=== PATIENT | male | born 1980 | race Caucasian/White ===

== ENCOUNTER 2023-09-23 11:42 | Emergency (ER) | payer OTHER, SELFPAY ==
[2023-09-23 12:09] VITALS: BP 154/114; PULSE 93; RESP 16; TEMP 37.2; O2SAT 100
--- NOTE | 2023-09-23 12:13 | ED.GENADULT ---
HPI - General Adult General Chief complaint: Upper Respiratory Infection Stated complaint: COLD SYMPTOMS Source: patient, RN notes reviewed and old records reviewed Mode of arrival: ambulatory Limitations: no limitations History of Present Illness HPI narrative: 43-year-old male patient presents to [facility] with complaints cough, congestion, sinus pressure that started almost 2 months ago. Patient tried ivsu-jec-gvhofok medications with no relief. Patient was also seen at another urgent care and given prednisone and told he had a viral illness. Patient states still did not improve. Patient denies chest pain, shortness of breath, dizziness, weakness. Related Data Allergies Allergy/AdvReac Type Severity Reaction Status Date / Time No Known Allergies Allergy Verified 09/23/23 12:16 Review of Systems Constitutional: Constitutional: Reports no additional constitutional complaints, Denies body ache(s), Denies chills, Denies fatigue, Denies fever(s) and Reports headache(s) Eyes: Eyes: Reports no additional eye complaints and Denies blurry vision ENT: Reports system reviewed and no additional complaints, except as documented, Denies vertigo, Denies dizziness, Denies ear discharge, Denies otalgia, Denies facial pain, Reports headache(s), Reports nasal congestion, Reports nasal discharge, Reports sinus pain, Reports sinus pressure and Denies sore throat Cardiovascular: Cardiovascular: Reports no additional cardiovascular complaints, Denies chest pain, Denies chest pain at rest, Denies rapid heart rate and Denies dyspnea Respiratory: Respiratory: Reports no additional respiratory complaints, Reports chest congestion, Reports cough, Denies pain on inspiration, Denies pain with cough and Denies dyspnea Gastrointestinal: Gastrointestinal: Denies abdominal pain, Denies diarrhea, Denies nausea and Denies vomiting Integumentary/Breasts: Skin/Breast: Denies rash Neurologic: Reports system reviewed and no additional complaints, except as documented, Denies vertigo, Denies dizziness and Denies headache(s) Endocrine: Endocrine: Denies fatigue PMFSH Comments At the time of my signature, I reviewed and agree with the nursing past medical, surgical, social, and family history. There is no relevant family history pertinent to the patient complaint. Exam Const: General: cooperative, healthy appearing, no acute distress and well nourished Nutritional Appearance: well nourished Orientation/consciousness: patient oriented x3 Limitations: no limitations HENMT: Head: normal to inspection and normocephalic Ears: external ears normal, TM's normal bilaterally, mastoids normal and Abnormal EAC present Face/Nose/Sinus: Abnormal mucous membranes and turbinates present boggy, Nasal discharge present purulent, normal facial exam and sinus tenderness Face and sinus: normal facial exam Mouth: Yes Normal oral and palatal mucosa present, Yes oropharynx normal and Yes moist mucous membranes Throat: tonsils normal, uvula midline and no uvular edema Eyes: General: appearance normal, both eyes and all related structures Sclera: sclerae normal Pupils: Equal, round and reactive pupils present Resp: Effort & Inspection: normal respiratory effort, able to speak in complete sentences, no audible wheezes, no cough, no respiratory distress and no retractions Auscultation: clear to auscultation bilaterally, no crackles, no rales, no rhonchi and no wheezes Cardio: Rate: regular rate Rhythm: regular rhythm Skin: General skin exam: normal color and no rashes or lesions noted Neuro: General: patient oriented x3 Cranial nerves: Yes Equal, round and reactive pupils present Psych: Appearance: grossly normal Mental Status: mental status grossly normal Speech and movement: Normal speech and movement present Affect: normal affect Course Course Emergency Course: Patient is aware of diagnosis, understands and agrees to treatment plan.? Anticipatory guidance given.? Jennifer
== END 2023-09-23 12:21 | disposition home or self-care (01) ==
PROVIDERS: Emergency Provider Registered Nurse
DX: J01.90 Acute sinusitis, unspecified (principal)
CPT/HCPCS: 99213; G0463

== ENCOUNTER 2024-12-07 01:34 | Emergency (ER) | payer OTHER, SELFPAY ==
[2024-12-07] VITALS (34 sets, daily range): BP systolic 137–169; BP diastolic 94–146; PULSE 74–101; RESP 14–22; TEMP 36.8; O2SAT 94–99
--- NOTE | ~2024-12-07 | CT_ITS ---
CT of the Abdomen and Pelvis: Indication: Abdominal pain Technique: 2.5 mm axial scans were obtained through the abdomen and pelvis following intravenous adm inistration of 100 cc of Omnipaque 350. Dose reduction technique was used on this scan by utilizing a utomated exposure control and iterative reconstruction technique. The dose-length product (DLP) was 8 01.53 mGy-cm. Findings: Scans through the lung bases are unremarkable. There is diffuse hepatic steatosis. Small calcified gallstone present. Possible small stones in the c ystic duct. The spleen, pancreas, adrenals and kidneys are within normal limits. No evidence of aort ic aneurysm. No lymphadenopathy. No bowel obstruction or bowel wall thickening. There is no evidence to suggest acute appendicitis. Images through the pelvis were performed. Urinary bladder unremarkable. No pelvic mass seen. No ascit es. Impression: Diffuse hepatic steatosis. Cholelithiasis, and possible small stones in the cystic duct, but no definite CT evidence for acute c holecystitis.. Reviewed, dictated and finalized at location . Impression: Diffuse hepatic steatosis. Cholelithiasis, and possible small stones in the cystic duct, but no definite C T evidence for acute cholecystitis..
--- OUTSIDE RECORDS SUMMARY | 2024-12-07 01:36 | XMS_ITS | Encounter Summary ---
Author Organization [employer] Address 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
--- OUTSIDE RECORDS SUMMARY | 2024-12-07 01:36 | XMS_ITS | Clinical Summary ---
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
--- OUTSIDE RECORDS SUMMARY | 2024-12-07 01:36 | XMS_ITS | Clinical Summary ---
Author Organization [facility] [employer] Address [address] [place] [place] [address] Care Team Providers Care Neon Installer Name Role Phone Pramod Dubois DO Primary Care Provider [phone] Source Comments [facility] [employer] [facility] [employer],non-owned Affiliates and Associated Physician Practices is amultiple site organization consisting of ambulatory clinics and hospital sitesin [place], [place], [place] and [place]. This disclosure is being madepursuant to the Care Everywhere program and may not contain all information available regarding this patient. Last updated 18.[employer] [facility] [employer] Allergies No known active allergies Medications * Be aware that medications may not be up to date on this document. Alwaysverify current medications with the patient. Tetrahydrozoline HCl (EYE DROPS OP) 1 Drop by Ophthalmic route once daily. Active loratadine (CLARITIN) 10 MG tabletIndication s:URI (upper respiratory infection),Asthm a Take 1 Tab by mouth once daily. 30 Tab 5 3 Active amoxicillin-clav ulanate (AUGMENTIN) 875-125 MG tabletIndication s:Bronchitis, acute Take 1 Tab by mouth every 12 hours. 20 Tab 0 3 Active albuterol HFA (VENTOLIN HFA) 108 (90 BASE) MCG/ACT inhalerIndicatio ns:URI (upper respiratory infection),Asthm a Inhale 2 Puffs by mouth every 6 hours as needed. 1 Inhaler 1 3 Active Active Problems Problem Noted Date Diagnosed Date Gastritis 03/07/2010 Fatigue 02/28/2010 Family History Medical History Relation Name Comments Depression Father Depression Mother Hypercholesterolemia Mother Relation Name Status Comments Brother Alive healthy Father Alive gallbladder rem dae Mother Alive healthy Sister Alive healthy Social History Tobacco Use Types Packs/Day Years Used Date Smoking Tobacco: Never Alcohol Use Standard Drinks/Week Comments Yes 3.3 (1 standard drink = 0.6 oz p ure alcohol) Sex and Gender Information Value Date Recorded Sex Assigned at Not on file Legal 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 Male 9:04 AM PEDIATRIC GENETICIST Gender Identity Not on file Sexual Orientation Not on file Last Filed Vital Signs Vital Sign Reading Time Taken Comments Blood Pressure 152/100 08/29/2012 2:00 PM PEDIATRIC GENETICIST Pulse 99 08/29/2012 2:00 PM PEDIATRIC GENETICIST Temperature 36.5 C (97.7 F) 08/29/2012 2:00 PM PEDIATRIC GENETICIST Respiratory Rate 14 08/29/2012 2:00 PM PEDIATRIC GENETICIST Oxygen Saturation 98% 08/29/2012 2:00 PM PEDIATRIC GENETICIST Inhaled Oxygen Concentration - - Weight 93 kg (205 lb) 08/29/2012 2:00 PM PEDIATRIC GENETICIST Height 182.9 cm (6') 08/29/2012 2:00 PM PEDIATRIC GENETICIST Body Mass Index 27.8 08/29/2012 2:00 PM PEDIATRIC GENETICIST Plan of Treatment Health Maintenance Due Date Last Done Comments COLOGUARD (AGES 45-75) - COL ON CA SCREENING 1978 COLON MONITORING 1978 COLONOSCOPY - COLON CA SCREENING 1978 CT COLONOGRAPHY - COLON CA SCREENING 1978 Colorectal Cancer Screening 1978 FIT - COLON CA SCREENING 1978 FLEX SIG - COLON CA SCREENING 1978 HIV SCREENING 1993 HEPATITIS C SCREENING 05/02/1996 DTAP/TDAP/TD VACCINES (1 - Tdap) 1997 HEPATITIS B VACCINE (1 of 3 - 19+ 3-dose series) 1997 LIPID TESTING 02/28/2015 02/28/2010 COVID-19 VACCINE ( - 2023-2 5 season) 2024 DEPRESSION SCREENING 08/09/2024 INFLUENZA VACCINE (Season Ended) 2025 ZOSTER VACCINE (1 of 2) 2028 HIB VACCINE Aged Out No longer eligi ble based on patient's age to complete this topic HPV VACCINE Aged Out No longer eligi ble based on patient's age to complete this topic MENINGOCOCCAL (Group B) VACC INE SHARED DECISION-MAKING Aged Out No longer eligibl e based on patient's age to complete this topic MENINGOCOCCAL GROUPS A/C/Y/W VACCINE Aged Out No longer eligible b ased on patient's age to complete this topic PNEUMOCOCCAL VACCINE Aged Out No long er eligible based on patient's age to complete this topic Procedures Procedure Name Priority Date/Time Associated Diagnosis Comments LIPID PROFILE Routine 02/28/2010 9:54 AM CDT Fatigue from Last 3 Months or Most Recently Relevant to Health Maintenance Results * (ABNORMAL) LIPID PROFILE (02/28/2010 9:54 AM CDT) Cholesterol 231(H) 100 - 199 mg/dL [facility] INSURANCE BILL Triglycerides 161(H) 0 - 149 mg/dL [facility] INSURANCE BILL HDL Cholesterol 70 >39 mg/dL [facility] INSURANCE BILL Comment: According to ATP-III Guidelines, HDL-C >59 mg/dL is considered a negative risk factor for CHD. VLDL Calculated 32 5 - 40 mg/dL [facility] INSURANCE BILL LDL Calculated 129(H) 0 - 99 mg/dL [facility] INSURANCE BILL BLOOD SPECIMEN / Unknown 02/28/2010 9:54 AM CDT 02/28/2010 8:49 PM CDT Narrative Resulting Agency Comment [facility] [place] [address] [facility] [id number] Pramod Dubois DO LAB - CHEMISTRY ORDERABLES Beverly l Result [facility] INSURANCE BILL [address] [place] [address] from Last 3 Months or Most Recently Relevant to Health Maintenance Care Teams Neon Installer Relationship Specialty Start Date End Date Pramod Dubois DO [address] [place] [address] PCP - General 02/18/10
[2024-12-07 01:59] LABS: Eosinophils Absolute Auto 0.1 K/mm3 (0-0.3); Eosinophils Percent Auto 2.6 % (0-4.4); Hematocrit 45.5 % (42.0-52.0); Immature Granulocyte Absolute 0.01 K/mm3 (0.00-0.031); Immature Granulocyte Percent A 0.2 % (0-0.5); Lymphocytes Absolute Auto 1.57 K/mm3 (0.9-3.2); Lymphocytes Percent Auto 30.9 % (18.3-44.2); Mean Corpuscular Hemoglobin 30.9 pg (26-34); Mean Corpuscular Volume 93.8 fl (80-100); Mean Platelet Volume 10.1 fl (7.4-10.4); Monocytes Absolute Auto 0.4 K/mm3 (0.1-0.6); Monocytes Percent Auto 7.9 % (2.6-8.5); Neutrophils Percent Auto 58.4 % (45.5-73.1); Platelet Count Result 173 k/mm3 (150-375); Red Blood Count 4.85 M/mm3 (4.6-6.20); Red Cell Distribution Width 11.9 % (11.5-14.5); White Blood Count 5.1 K/mm3 (4.5-10.0)
[2024-12-07 02:13] LABS: Alanine Aminotransferase 59 U/L (6-50); Alkaline Phosphatase 83 U/L (38-126); Anion Gap 14 mmol/L (4-12); Aspartate Amino Transferase 30 U/L (17-59); Bilirubin,Total 0.7 mg/dL (0.2-1.3); Blood Urea Nitrogen 14 mg/dL (9-20); Calcium 9.2 mg/dL (8.4-10.2); Carbon Dioxide 27 mmol/L (22-30); Chloride 100 mmol/L (98-107); Estimated CRCL calculation 90 ml/min; Estimated Glomerular Filt Rate > 60; Glucose 114 mg/dL (65-110); Lipase 88 U/L (23-300); Potassium 3.6 mmol/L (3.4-5.0); Sodium 141 mmol/L (137-145)
--- OUTSIDE RECORDS SUMMARY | 2024-12-07 02:50 | XMS_ITS | Clinical Summary ---
Author Organization [facility] Address [address] [place] [address] Care Team Providers Care Lamp Shades Supervisor Name Role Phone Pramod Dubois DO Primary Care Provider [phone] Source Comments [facility] [employer],non-owned Affiliates and Associated Physician Practices is amultiple site organization consisting of ambulatory clinics and hospital sitesin [place], [place], [place] and [place]. This disclosure is being madepursuant to the Care Everywhere program and may not contain all information available regarding this patient. 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 Gender Identity Not on file Sexual Orientation Not on file Last Filed Vital Signs Vital Sign Reading Time Taken Comments Blood Pressure 152/100 08/29/2012 2:00 PM GLASS OR MIRROR INSPECTOR Pulse 99 08/29/2012 2:00 PM GLASS OR MIRROR INSPECTOR Temperature 36.5 C (97.7 F) 08/29/2012 2:00 PM GLASS OR MIRROR INSPECTOR Respiratory Rate 14 08/29/2012 2:00 PM GLASS OR MIRROR INSPECTOR Oxygen Saturation 98% 08/29/2012 2:00 PM GLASS OR MIRROR INSPECTOR Inhaled Oxygen Concentration - - Weight 93 kg (205 lb) 08/29/2012 2:00 PM GLASS OR MIRROR INSPECTOR Height 182.9 cm (6') 08/29/2012 2:00 PM GLASS OR MIRROR INSPECTOR Body Mass Index 27.8 08/29/2012 2:00 PM GLASS OR MIRROR INSPECTOR Plan of Treatment Health Maintenance Due Date [...] PM CDT Narrative Resulting Agency Comment [facility] [place] [address] [facility] [phone] Pramod Dubois DO LAB - CHEMISTRY ORDERABLES Beverly l Result [facility] INSURANCE BILL [address] [place] [address] from Last 3 Months or Most Recently Relevant to Health Maintenance Care Teams Lamp Shades Supervisor Relationship Specialty Start Date End Date Pramod Dubois DO [address] [place] [address] PCP - General 02/18/10
--- OUTSIDE RECORDS SUMMARY | 2024-12-07 02:50 | XMS_ITS | Encounter Summary ---
Author Organization [employer] Address 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
--- OUTSIDE RECORDS SUMMARY | 2024-12-07 02:50 | XMS_ITS | Clinical Summary ---
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
--- NOTE | 2024-12-07 03:14 | ED_ITS ---
HPI - Abdominal Pain General Chief Complaint: Abdominal Pain Stated Complaint: abdominal pain x 6hrs Time Seen by Provider: 12/07/24 02:45 History of Present Illness HPI narrative: 44-year-old otherwise healthy male presenting to the emergency room with chief complaint of right upper quadrant abdominal pain for last 6 hours. Patient states he was eating a heavy meal of chil-cortney-a and approximately 30 minutes later he started developing pain is right upper quadrant and right-sided back. States it lasted about 6 hours and has since subsided upon his arrival to the emergency department. States he had several episodes of nauseousness but no vomiting. Similar episode 3 weeks ago with the exact same story. This 1 was more severe. No history of gallbladder disease to his knowledge. States he has a father that had a similar history and had a gallbladder removal. Denies any history of kidney stones, no drinking or liver disease. No history of pancreatitis. Was otherwise in his normal state of health. No fever, chills, nausea presently, no abdominal pain presently. No back pain or urinary issues. No chest pain or difficulty breathing. Did not take anything for pain prior to arrival Related Data Allergies Allergy/AdvReac Type Severity Reaction Status Date / Time No Known Allergies Allergy Verified 09/23/23 12:16 Review of Systems 2 Review of Systems: As reviewed above in HPI Exam 2 Narrative: GENERAL: [Well-appearing, well-nourished, and in no acute distress.] HEAD: [Normocephalic, atraumatic.] EYES: [PERRLA and EOMI.] ENT: Nares clear, no rhinorrhea or epistaxis. Mucous membranes moist. NECK: Supple. CHEST: [Clear to auscultation. No respiratory distress.] HEART: [Regular rate and rhythm]. No murmur heard. [Normal peripheral pulses.] ABDOMEN: [Soft, nondistended], mildly tender in the right upper quadrant, William sign, [No rigidity or guarding] EXTREMITIES: Normal range of motion. [No edema.] SKIN: Warm, dry, no rash. NEURO: [No focal deficits]. Alert and oriented [x3.] PSYCH: [Normal mood and affect.] Course Vital Signs Vital signs: Vital Signs Temperature 36.8 C 12/07/24 01:35 Pulse Rate 74 12/07/24 01:35 Respiratory Rate 18 12/07/24 01:35 Blood Pressure 169/101 H 12/07/24 01:35 Pulse Oximetry 99 12/07/24 01:35 Temperature 36.8 C 12/07/24 01:35 Pulse Rate 74 12/07/24 01:35 Respiratory Rate 18 12/07/24 01:35 Blood Pressure 169/101 H 12/07/24 01:35 Pulse Oximetry 99 12/07/24 01:35 MDM - Abdominal Pain MDM Narrative Medical decision making narrative: 44-year-old male with a no significant past medical history presenting with right upper quadrant pain for 6 hours. Associated with nausea without vomiting. Started by eating a meal and then 30 minutes later started developing pain. Similar episode happened 3 weeks ago and subsided after 1 hour. No history of gallbladder disease to his knowledge. No history of kidney stones or liver disease. No drinking history. He has a soft nondistended but minimally tender abdomen the right upper quadrant. He states his pain is completely resolved. Vital signs show some mild hypertension but no tachycardia, fever or hypoxia. Differential diagnosis includes renal colic, gallbladder colic, cholecystitis, cholelithiasis, cirrhosis or liver disease. Low suspicion for other intra- abdominal process at this time such as pancreatitis. CBC, CMP, urinalysis and lipase are obtained. A CT scan of the abdomen and pelvis with contrast ordered. He is presently asymptomatic. Workup shows no leukocytosis or anemia. Electrolytes are unremarkable. Normal renal function, normal hepatic function, normal glucose. Normal lipase. CT scan shows cholelithiasis, no evidence of acute cholecystitis. Diffuse hepatic steatosis. Results were discussed with the patient and General surgery referrals were provided. Patient is safe for discharge home at this time as he is asymptomatic. Patient given return precautions. Medical Records Attestation: I reviewed the patient's medical records. Lab Data Attestation: I reviewed the patient's lab results. 12/07/24 01:51 12/07/24 01:51 Labs: Lab Results 12/07/24 Range/Units 01:51 WBC 5.1 (4.5-10.0) K/mm3 RBC 4.85 (4.6-6.20) M/mm3 Hgb 15.0 (14.0-18.0) g/dL Hct 45.5 (42.0-52.0) % MCV 93.8 (80-100) fl MCH 30.9 (26-34) pg MCHC 33.0 (32-36) g/dl RDW 11.9 (11.5-14.5) % Plt Count 173 (150-375) k/mm3 MPV 10.1 (7.4-10.4) fl Immature Gran % (Auto) 0.2 (0-0.5) % Neut % (Auto) 58.4 (45.5-73.1) % Lymph % (Auto) 30.9 (18.3-44.2) % [place] % (Auto) 7.9 (2.6-8.5) % Eos % (Auto) 2.6 (0-4.4) % Baso % (Auto) 0.0 L (0.2-1.2) % Lymph # (Auto) 1.57 (0.9-3.2) K/mm3 [place] # (Auto) 0.4 (0.1-0.6) K/mm3 Eos # (Auto) 0.1 (0-0.3) K/mm3 Baso # (Auto) 0.0 (0.0-0.1) K/mm3 Abs Immat Gran (auto) 0.01 (0.00-0.031) K/mm3 Absolute Neuts (auto) 3.0 (1.3-6.7) K/mm3 Absolute Nucleated RBC 0.000 (0.0-0.012) K/mm3 Nucleated RBC % 0.0 (0.0-0.2) % Sodium 141 (137-145) mmol/L Potassium 3.6 (3.4-5.0) mmol/L Chloride 100 (98-107) mmol/L Carbon Dioxide 27 (22-30) mmol/L Anion Gap 14 H (4-12) mmol/L BUN 14 (9-20) mg/dL Creatinine 0.99 (0.7-1.3) mg/dL Estim Creat Clear Calc 90 ml/min Estimated GFR > 60 (59 - ) Glucose 114 H (65-110) mg/dL Calcium 9.2 (8.4-10.2) mg/dL Total Bilirubin 0.7 (0.2-1.3) mg/dL AST 30 (17-59) U/L ALT 59 H (6-50) U/L Alkaline Phosphatase 83 (38-126) U/L Total Protein 8.0 (6.3-8.2) g/dL Albumin 5.0 (3.5-5.1) g/dL Lipase 88 (23-300) U/L Imaging Data Attestation: I personally reviewed and interpreted this imaging study as follows: My impression: Impressions Abdomen/Pelvis CT 12/07/24 06:12 Impression: Diffuse hepatic steatosis. Cholelithiasis, and possible small stones in the cystic duct, but no definite CT evidence for acute cholecystitis.. Radiologist's impression: ITS Impressions Abdomen/Pelvis CT 12/07/24 06:12 Impression: Diffuse hepatic steatosis. Cholelithiasis, and possible small stones in the cystic duct, but no definite CT evidence for acute cholecystitis.. Discharge Plan Discharge Clinical Impression: Symptomatic cholelithiasis, Fatty liver Patient Disposition: Home Condition: Stable Instructions: Antibiotic Form, Biliary Colic (ED), Gallstones (ED), Abdominal Pain (ED), Chronic Liver Disease (ED) Additional Instructions: CT scan shows gallstones but no evidence of cholecystitis which is reassuring. You also do have some fatty liver disease but your LFTs are normal. No signs of active infection. Given your history of intermittent symptoms and gallstones you would benefit from evaluation with General surgery. Please call the provided clinic information to schedule an outpatient appointment for elective cholecystectomy discussions. Return to the emergency department if you have any intractable pain, worsening nausea and vomiting, inability to tolerate oral intake, fevers or any other concerns. Patient Language: Liberian Prescriptions: No Action amoxicillin-pot clavulanate 875-125 mg tablet 1 tablet PO Q12H 10 Days Qty: 20 0RF Follow-up/Referrals: Shane Owen MD [Physician] - 3 Days (Symptomatic cholelithiasis) PHYSICIAN,DIRECTOR OF RADIO SERVICES [Primary Care Provider] - Kamari Mondragon DO [Physician] - 3 Days (Symptomatic cholelithiasis) Marcio Hewitt MD [Physician] - 3 Days (Symptomatic cholelithiasis) Time of Disposition: 06:20
== END 2024-12-07 06:27 | disposition home or self-care (01) ==
PROVIDERS: Physician Assistant; Emergency Provider Student in an Organized Health Care Education/Training Program
DX: K80.20 Calculus of gallbladder without cholecystitis without obstruction (principal); K76.0 Fatty (change of) liver, not elsewhere classified
CPT/HCPCS: 36415; 74177; 80053; 83690; 85025; 99284; Q9967